=== PATIENT | female | born 1985 | race Caucasian/White ===

== ENCOUNTER 2018-05-22 14:20 | Emergency (ER) | payer OTHER, SELFPAY ==
[2018-05-22 14:22] VITALS: BP 157/101; PULSE 95; RESP 18; TEMP 37.1; O2SAT 99; BMI 35.9
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
--- NOTE | 2018-05-22 16:05 | ED.DEP ---
ED Disposition - Plan for ED Patient: Disposition: Home or Assisted Living Chief Complaint: Head Injury Instructions: ED Head Injury Closed, ED Contusion Face Referrals: [facility] [GROUP OF PHYSICIANS] - As Needed Additional Instructions: Ice all sore areas down. Tylenol and Motrin for pain. Follow-up with corporate care as needed.
== END 2018-05-22 16:23 | disposition home or self-care (01) ==
PROVIDERS: Emergency Provider Emergency Medicine
DX: S00.83XA Contusion of other part of head, initial encounter (principal); S09.90XA Unspecified injury of head, initial encounter; Y04.2XXA Assault by strike against or bumped into by another person, initial encounter; Y93.89 Activity, other specified; Y92.119 Unspecified place in children's home and orphanage as the place of occurrence of the external cause; Y99.0 Civilian activity done for income or pay
CPT/HCPCS: 99282

== ENCOUNTER 2020-01-07 14:09 | Emergency (ER) | payer SELFPAY ==
[2019-04-26 09:30] VITALS: BMI 35.9
[2020-01-07 14:11] VITALS: BP 157/103; PULSE 94; RESP 17; TEMP 36.8; O2SAT 100; BMI 33.6
--- NOTE | 2020-01-07 14:49 | CT_ITS ---
STUDY: CT BRAIN WITHOUT CONTRAST REASON FOR EXAM: Female, 34 years old. HEADACHE RADIATION DOSAGE (If Supplied By Facility): CTDIvol = ( 44.99 ) mGy, DLP = ( 779.24 ) mGycm TECHNIQUE: Transaxial CT imaging of the brain was performed without administration of intravenous contrast material. Individualized dose optimization techniques were used for this CT. COMPARISON: No relevant priors. FINDINGS: Normal soft tissue structures. Normal calvarium. Normal size ventricles and extra-axial spaces for the patient''s age. Normal white matter tracts of the cerebral hemispheres. Normal basal ganglia and thalami. Normal brainstem. Normal cerebellum. There is no intracranial hemorrhage. There are no findings of an acute ischemic infarction. There is mucosal thickening within the left posterior ethmoid and sphenoid sinuses. CT/Brain/Head without Contrast IMPRESSION: Normal unenhanced CT scan of the brain. Left posterior ethmoid and sphenoid sinusitis Electronically Signed: Grant Bond MD at 16:06 EDT , Service support ,
--- NOTE | 2020-01-07 15:11 | ED.DCSUM_ITS ---
- ER Visit Summary Date of Service: 01/07/20 Chief Complaint: Headache and dizziness History of Present Illness: The patient is a 34 F who presents with a headache and dizziness that is been getting worse over the past week. Patient states her headache is generalized. Patient describes it as pressure and dull. Patient states it has been constant over the past week. Patient describes her dizziness as lightheaded. Patient denies any spinning sensations. Patient states it is gradually gotten worse over the past week. Patient states she had to leave work today which prompted her to come to the emergency department. Physical Examination: Vital signs are stable. Patient is afebrile. Patient is in no acute distress. Pupils are equal, round, and reactive to light bilaterally. Extraocular muscles are intact. Oral mucosa is pink and moist. Neck is supple. Trachea is midline. There is no JVD. Heart was regular rate and rhythm. Lungs are clear and equal bilaterally. Abdomen is soft. Bowel sounds are normal. There is no tenderness. Cranial nerves II through XII are intact. There are no focal motor or sensory deficits noted. Extremities are intact. There is no calf tenderness or edema. Test Results: CT scan of the brain was obtained. There is left posterior ethmoid and sphenoid sinusitis. There is no acute intracranial abnormality. This was interpreted by the radiologist and reviewed by myself. Emergency Department Course and Treatment: Patient was given IV fluids, Compazine, and Benadryl. Patient was feeling better on reevaluation. Patient was given prescription for Flonase and Augmentin. Patient was instructed to follow-up with her primary care physician in 5 to 7 days. Patient understood and was agreeable with the plan. All questions were answered. Disposition: Discharge home Impression: 1. Headache 2. Sinusitis This note was generated with [employer] software. It may contain incorrect words, spelling, and punctuation that were not noted in review of the chart prior to signing ED Disposition - Plan for ED Patient: Disposition: Home or Assisted Living Diagnosis: Headache, Sinusitis, acute ethmoidal, Sinusitis, acute, sphenoidal Instructions: ED Sinusitis Antibiotic Treatment, ED Headache Sinus Prescriptions: Amox/Clavulanate Tablet [Augmentin Tablet] 875 mg PO Q12H #20 tab Prescription Printed Fluticasone 0.05% [Flonase Nasal [facility]] 1 spray NASAL DAILY #1 nasal.sry Prescription Printed Referrals: Care Physician,No Primary [Primary Care Provider] -
[2020-01-07] MEDS: 0.9% Normal Saline 1,000 ML 999 ML IV (15:31)
[2020-01-07] MEDS: DiphenhydrAMINE 50 MG/ML Syringe 25 MG IV (15:32)
[2020-01-07] MEDS: proCHLORPERazine 10 MG/2 ML Vial IV (15:32)
[2020-01-07 15:35] VITALS: BP 170/102; PULSE 95; RESP 18; O2SAT 99
[2020-01-07 15:50] LABS: Absolute Neutrophil Count 6.2 X10^3/uL (2.0-7.7); Basophil# 0.05 X10^3/uL; Basophil% 0.6 % (0-1); Eosinophil# 0.04 X10^3/uL; Eosinophils% 0.5 % (0-5); Hematocrit 36.4 % (37-47); Hemoglobin 10.3 g/dL (12.0-15.0); Mean Corp Hgb Conc 28.3 g/dL (32-36); Mean Corpuscular Hgb 20.9 pg (27.0-32.0); Mean Corpuscular Volume 73.8 fL (81-99); Mean Platelet Vol. 9.3 fl (6.2-12.0); Monocyte# 0.51 X10^3/uL; NRBC Flagged by Analyzer 0 % (0-5); Neutrophil # 6.21 X10^3/uL (2.7-7.7); Neutrophil % 73.5 % (47-70); Platelet Count 435 K/mm3 (150-450); RBC Distribution Width CV 17.7 % (11.6-14.6); RBC Distribution Width SD 46.8 fl (35.1-43.9); Red Blood Count 4.93 M/mm3 (4.2-5.4); White Blood Count 8.4 K/mm3 (4.4-11.0)
[2020-01-07 16:04] LABS: Anion Gap 5 (5-15); BUN 6 mg/dL (7-18); BUN/Creat Ratio 9.9 RATIO (10-20); Calcium,Total 9.1 mg/dL (8.5-10.1); Chloride 107 mmol/L (98-107); Creatinine, Serum 0.61 mg/dL (0.55-1.02); EST Glomerular Filtration Rate 121 mL/min (>60); Est Glom Filt Rate - Afr Amer 146 mL/min (>60); Estimated Creatinine Clearance 99.91 ml/min; Glucose 101 mg/dL (74-106); Potassium 3.4 mmol/L (3.5-5.1); Sodium Level 142 mmol/L (136-145)
[2020-01-07 17:41] VITALS: BP 169/88; PULSE 80; RESP 16; O2SAT 100
[2020-01-07 18:16] VITALS: BP 143/86; PULSE 90; RESP 16; O2SAT 100
== END 2020-01-07 18:18 | disposition home or self-care (01) ==
PROVIDERS: Emergency Provider Emergency Medicine
DX: J01.30 Acute sphenoidal sinusitis, unspecified (principal); J01.20 Acute ethmoidal sinusitis, unspecified
CPT/HCPCS: 70450; 80048; 85025; 96361; 96374; 96375; 99282; J7030; A4216

== ENCOUNTER → 2024-10-25 | Outpatient (CLI) | payer BC, SELFPAY ==
--- NOTE | 2024-10-25 15:51 | VDLE_ITS ---
Reason For Study Reason For Study: BLE Pain RIGHT LEFT GSV is normal. GSV is normal. CFV is compressible, spontaneous, phasic, competent CFV is compressible, spontaneous, phasic, competent, and demonstrates normal augmentation. and demonstrates normal augmentation. FV is compressible, spontaneous, phasic, competent FV is compressible, spontaneous, phasic, competent and demonstrates normal augmentation. and demonstrates normal augmentation. POP V is compressible, spontaneous, phasic, competent POP V is compressible, spontaneous, phasic, competent and demonstrates normal augmentation. and demonstrates normal augmentation. T/P Trunk is compressible. T/P Trunk is compressible. PTV is compressible. PTV is compressible. RT PerV is compressible. LT PerV is compressible. Procedure This is a venous duplex using B-mode, color flow and spectral Doppler. Exam performed in department. The exam was diagnostic. A preliminary report was called and/or faxed to Laura Young / Dr. Manzo. VL/Venous Duplex US - Gerald Extrem Interpretation Summary Deep veins of the bilateral lower extremities are patent and compressible segme ntally. There is no evidence of bilateral lower extremity deep vein thrombosis. The bilateral great saphenous veins appea r patent and compressible segmentally. Ordering Physician: Timbo Manzo Referring Physician: Timbo Manzo M.D. Performed By: Doug Lu RVT
== END | disposition home or self-care (01) ==
PROVIDERS: PCP Nurse Practitioner Family; Referring Provider Orthopaedic Surgery; Visit Provider Orthopaedic Surgery
DX: M79.662 Pain in left lower leg (principal); M79.661 Pain in right lower leg
CPT/HCPCS: 93970